=== PATIENT | male | born 1965 | race Caucasian/White ===

== ENCOUNTER 2020-11-11 02:07 | Day surgery (SDC) | payer OTHER | END 2020-11-11 23:59 | disposition home or self-care (01) | LOC: WOUND 02:07 | DX: S81.802A Unspecified open wound, left lower leg, initial encounter (principal); S81.801A Unspecified open wound, right lower leg, initial encounter; X58.XXXA Exposure to other specified factors, initial encounter; E08.42 Diabetes mellitus due to underlying condition with diabetic polyneuropathy; I87.2 Venous insufficiency (chronic) (peripheral); E08.51 Diabetes mellitus due to underlying condition with diabetic peripheral angiopathy without gangrene; N18.9 Chronic kidney disease, unspecified; E08.22 Diabetes mellitus due to underlying condition with diabetic chronic kidney disease | CPT/HCPCS: A9270; G0463 ==

== ENCOUNTER 2020-11-18 00:57 | Day surgery (SDC) | payer OTHER | END 2020-11-18 23:03 | disposition home or self-care (01) | LOC: WOUND 00:57 | DX: E11.622 Type 2 diabetes mellitus with other skin ulcer (principal); L97.812 Non-pressure chronic ulcer of other part of right lower leg with fat layer exposed; L97.822 Non-pressure chronic ulcer of other part of left lower leg with fat layer exposed; E11.42 Type 2 diabetes mellitus with diabetic polyneuropathy; E11.51 Type 2 diabetes mellitus with diabetic peripheral angiopathy without gangrene; I87.2 Venous insufficiency (chronic) (peripheral) | CPT/HCPCS: A9270; G0463 ==

== ENCOUNTER 2020-11-25 00:51 | Day surgery (SDC) | payer OTHER | END 2020-11-25 23:22 | disposition home or self-care (01) | LOC: WOUND 00:51 | DX: E11.622 Type 2 diabetes mellitus with other skin ulcer (principal); L97.822 Non-pressure chronic ulcer of other part of left lower leg with fat layer exposed; L97.812 Non-pressure chronic ulcer of other part of right lower leg with fat layer exposed; E11.51 Type 2 diabetes mellitus with diabetic peripheral angiopathy without gangrene; I87.2 Venous insufficiency (chronic) (peripheral); E11.42 Type 2 diabetes mellitus with diabetic polyneuropathy; Z88.5 Allergy status to narcotic agent | CPT/HCPCS: A9270; G0463 ==